=== PATIENT | female | born 1950 | race Caucasian/White ===

== ENCOUNTER 2021-10-25 18:29 | Emergency (ER) | payer MEDICARE, MEDICAID, SELFPAY ==
[2021-10-25 18:41] VITALS: BP 126/83; PULSE 110; RESP 20; TEMP 37.5; O2SAT 97
--- NOTE | 2021-10-25 20:54 | PC.NURSE ---
no answer x3 at triage
== END 2021-10-25 20:50 | disposition left against medical advice (07) ==
DX: K08.89 Other specified disorders of teeth and supporting structures (principal)
CPT/HCPCS: 99199